=== PATIENT | female | born 1980 | race Two or more races ===

== ENCOUNTER 2016-08-14 09:54 | Day surgery (SDC) | payer OTHER ==
--- NOTE | 2016-08-12 18:24 | HP ---
TALON BORRERO [id number] DATE OF PROCEDURE: 08/14/2016 PREOPERATIVE DIAGNOSIS: High-grade cervical dysplasia. PROCEDURE: LOOP ELECTROSURGICAL EXCISION PROCEDURE. SURGEON: Dr. Lisandro Treviño HISTORY OF PRESENT ILLNESS: The patient is a 35-year-old female with a history of abnormal Pap. The patient initially had an abnormal Pap in May of 2015 at the initiation of her twins . 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 The patient subsequently had a LEEP procedure which showed HPV effected the endocervical margin, but no dysplasia was noted on the specimen. Subsequently the patient had a repeat Pap smear in April of 2016 which showed low-grade cervical dysplasia. This was followed by a colposcopy in June of 2016 which did again show CIN3 at the 12 o'clock location, and therefore the patient presents for a repeat LEEP procedure. Of note, at the previous LEEP procedure in the office the patient did experience heavy bleeding. PAST ABA THERAPIST HISTORY: The patient has had four prior caesarian deliveries, the most recent one was for twins delivery. The patient did have preeclampsia at that time, with some mild renal insufficiency, with a creatinine ranging from 1.1 to 1.3. PAST MEDICAL HISTORY: Mild renal insufficiency of unknown etiology. The patient also has a recent urinary tract infection for which she is currently on an antibiotic course. PAST SURGICAL HISTORY: Caesarian section times four. MEDICATIONS: The patient is currently on an antibiotic for a urinary tract infection. ALLERGIES: No known drug allergies. PHYSICAL EXAMINATION: GENERAL: The patient is in no apparent distress. HEART: Regular rate and rhythm. LUNGS: Clear to auscultation bilaterally. ABDOMEN: Nontender and nondistended. EXTREMITIES: Exam is normal. ASSESSMENT/PLAN: This is a 35-year-old female with high-grade cervical dysplasia. We will perform a repeat LEEP procedure in the operating room due to the patient's history of heavy bleeding on a previous office procedure. The procedure, indications and risks have been reviewed. Preoperative instructions and postoperative expectations have been reviewed. We will check a CBC, basic metabolic panel and HCG prior to the procedure.
[2016-08-14] MEDS ORDERED: IV START KIT ONE (09:57)
[2016-08-14] MEDS ORDERED: LACTATED RINGERS 1,000 ML ONE (09:57)
[2016-08-14] MEDS ORDERED: ONDANSETRON 4 MG/2ML 2 ML VIAL ONE (11:36)
[2016-08-14] MEDS ORDERED: MIDAZOLAM HCL 1 MG/ML 2ML VIAL ONE (11:36)
[2016-08-14] MEDS ORDERED: LIDOCAINE 2% (MULTI DOSE) 10 ML VIAL ONE (11:36)
[2016-08-14] MEDS ORDERED: FENTANYL 100 MCG/2 ML VIAL ONE (11:36)
[2016-08-14] MEDS ORDERED: METOCLOPRAMIDE HCL 5 MG/ML 2ML VIAL ONE (11:36)
[2016-08-14] MEDS ORDERED: KETOROLAC TROMETHAMINE 30 MG/ML 1 ML VIAL ONE (11:36)
[2016-08-14] MEDS ORDERED: PROPOFOL 40 ML IV ONE (11:36)
[2016-08-14] MEDS ORDERED: DEXAMETHASONE SOD PHOS 4 MG/1 ML VIAL ONE (11:36)
[2016-08-14] MEDS ORDERED: LIDOCAINE 1% 2 ML VIAL ID PRN (12:19)
[2016-08-14] MEDS ORDERED: CEFAZOLIN SODIUM 2 GRAM DUPLEX 2 G in Premix (D5W) 50 ml 1 EACH IV PRN (12:19)
[2016-08-14] MEDS ORDERED: LACTATED RINGERS 1,000 ML IV SCH ×2 (12:30→13:53)
[2016-08-14] MEDS ORDERED: LIDOCAINE 1%/EPI (MULTI DOSE) 20 ML VIAL ONE (12:31)
[2016-08-14] MEDS ORDERED: ONDANSETRON 4 MG/2ML 2 ML VIAL IV PRN (13:53)
[2016-08-14] MEDS ORDERED: OXYCODONE/ACETAMINOPHEN 5/325 MG TABLET PO PRN (13:53)
[2016-08-14] MEDS ORDERED: IBUPROFEN 800 MG TABLET PO PRN (13:53)
--- NOTE | 2016-08-15 11:31 | OP ---
TALON BORRERO [id number] DATE OF PROCEDURE: 08/14/2016 PREOPERATIVE DIAGNOSIS: High-grade cervical dysplasia. POSTOPERATIVE DIAGNOSIS: High-grade cervical dysplasia. PROCEDURE: LOOP ELECTROSURGICAL EXCISION PROCEDURE. SURGEON: Dr. Lisandro Treviño ANESTHESIA: Sedation. ESTIMATED BLOOD LOSS: 100 mL PATHOLOGICAL SPECIMEN: Cervical biopsy. OPERATIVE COURSE: The patient was taken to the OR and placed under sedation. The patient was placed in lithotomy and prepped and draped in a sterile fashion. The bladder was emptied with a straight catheter for 500 mL. A speculum was then placed and the cervix was examined. There were no gross lesions noted. Using a small electrosurgical loop, a circumferential marking was made with the cautery around the cervix and subsequently using the small loop the cervix specimen was then circumferentially incised. Subsequently then using a larger loop, the specimen was then excised. At this point there appeared to be multiple areas of bleeding from arterial vessels from the cervix, and this was cauterized. The entire cervix then was cauterized for hemostasis, as well as for ablation of dysplasia. Subsequently, there was good hemostasis observed. All instruments were then removed. The patient was then recovered from anesthesia and taken to the recovery room in stable condition.
--- NOTE | 2016-08-18 10:45 | SURGPATH ---
[facility] [address] [place] [id number] Patient Name: TALON BORRERO MR#: [id number] : 1980 Gender: F Specimen #: [id number] Collected: 08/14/2016 Received: 08/17/2016 Reported: 08/18/2016 Submitting Phys: GUEVARA RAO Copy To Phys: [facility] - HIM Clinical History / Pre-Operative Diagnosis: HIGH-GRADE CERVICAL DYSPLASIA Specimen Source / Surgical Procedure Performed: CERVICAL LEEP SPECIMEN Interpretation: CERVIX, LEEP CONE BIOPSY: - SEVERE SQUAMOUS DYSPLASIA (DELMER 3), WITH FOCAL EXTENSION TO ENDOCERVICAL MARGIN Electronically Signed Out Orlando Noel M.D. Gross Description: The specimen is received in a formalin filled container labeled with the patient's name and "cervical LEEP specimen". A crescent shaped excision of bull tissue is 2.8 x 1.3 x 0.7 cm and is partially covered by smooth, pale pink ectocervix on one surface. The cautery roughened surgical margin is inked black and the specimen is multiply cross sectioned and entirely submitted sequentially as three sections each in cassettes A and B and two sections each in cassettes C and D. Vito Reeves Microscopic Description: Levels of the serially section cervical cone biopsy reveal areas of severe squamous dysplasia in the area of the transformation zone. Focally the dysplasia extends to the endocervical surgical margin. Stromal invasion is not present. 1: [id number] D06.9
== END 2016-08-14 14:55 | disposition home or self-care (01) ==
LOC: SDC 09:54
PROVIDERS: ATTEND Obstetrics & Gynecology
DX: N87.9 Dysplasia of cervix uteri, unspecified (principal); I10 Essential (primary) hypertension; N28.89 Other specified disorders of kidney and ureter
CPT/HCPCS: 57520; J3010; J1100; J2765; J1885; J2250; J2405; J7120; J2001